=== PATIENT | male | born 1970 | race Caucasian/White ===

== ENCOUNTER 2018-01-05 19:24 | Emergency (ER) | END 2018-01-05 23:37 | disposition home or self-care (01) ==

== ENCOUNTER 2018-05-07 12:02 | Emergency (ER) | END 2018-05-07 16:15 | disposition home or self-care (01) ==

== ENCOUNTER 2018-05-09 10:20 | Emergency (ER) | END 2018-05-09 11:10 | disposition home or self-care (01) ==